=== PATIENT | male | born 1955 | race Caucasian/White ===

== ENCOUNTER 2017-04-25 17:37 | Emergency (ER) | payer OTHER ==
[~2017-04-25] VITALS: Ht 188 cm; Wt 108.9 kg
[~2017-04-25 17:37] MED LIST: ASPIR 8181 MG PO; CARTIA XT180 MG PO; CYCLOBENZAPRINE10 MG PO; IBUPROFEN600 MG PO; MAGNESIUM200 MG PO; NORCO 5-325 TA1 EACH PO; PERCOCET 5-3251 EACH PO; SOTALOL AF80 MG PO
[2017-04-25] MEDS ORDERED: DILTIAZEM HCL60 MG PO (17:51)
[2017-04-25] MEDS ORDERED: PERCOCET 5-3251 EACH PO (20:28)
== END 2017-04-25 20:35 | disposition home or self-care (01) ==
LOC: ED 17:37
DX: R10.32 Left lower quadrant pain (principal); I48.91 Unspecified atrial fibrillation; Z88.1 Allergy status to other antibiotic agents; Z79.899 Other long term (current) drug therapy; Z79.82 Long term (current) use of aspirin
CPT/HCPCS: 74177; 80053; 81001; 85025; 87088; 96361; 96374; 96375; 99284; J1170; J2405; J7030; Q9967

== ENCOUNTER 2018-04-06 03:51 | Emergency (ER) | payer OTHER ==
[~2018-04-06] VITALS: Ht 188 cm; Wt 108.9 kg
[~2018-04-06 03:51] MED LIST changes: +DILTIAZEM HCL60 MG PO
== END 2018-04-06 05:11 | disposition home or self-care (01) ==
LOC: ED 03:51
DX: S29.012A Strain of muscle and tendon of back wall of thorax, initial encounter (principal); S54.01XA Injury of ulnar nerve at forearm level, right arm, initial encounter; Z88.1 Allergy status to other antibiotic agents; X58.XXXA Exposure to other specified factors, initial encounter
CPT/HCPCS: 96372; 99283; J1885